=== PATIENT | male | born 1990 | race Caucasian/White ===

== ENCOUNTER 2019-04-02 16:36 | Emergency (ER) | payer MEDICAID, SELFPAY ==
[2019-04-02 17:02] VITALS: BP 121/56; PULSE 70; TEMP 36.9; O2SAT 98
[2019-04-02 17:38] LABS: Bilirubin Negative (Negative); Blood Negative (Negative); Clarity Clear (Clear); Glucose Negative (Negative); Ketones Negative (Negative); Leukocyte Esterase Negative (Negative); Nitrite Negative (Negative); Specific Gravity >= 1.030 (1.005-1.025); pH 5.5 (5-8)
[2019-04-02 17:56] LABS: *AMPHETAMINES SCREEN URINE POSITIVE (Negative); *BARBITURATES SCREEN URINE Negative (Negative); *BENZODIAZEPINES SCREEN URINE Negative (Negative); Cannabinoids THC POSITIVE (Negative); Cocaine Screen,Urine Negative (Negative); METHADONE URINE SCREEN Negative (Negative); OPIATES URINE SCREEN Negative (Negative)
[2019-04-02 17:58] LABS: Abs Immature Grans 0.02 k/cumm (0.0-0.09); Absolute Basophil Count 0.05 k/cumm (0.0-0.2); Absolute Eosinophil Count 0.23 k/cumm (0.0-0.7); Absolute Lymphocyte Count 1.65 k/cumm (1.2-3.4); Absolute Monocyte Count 0.63 k/cumm (0.11-0.7); Absolute Neutrophil Count 5.12 k/cumm (1.2-6.7); Basophils % 0.6; HCT 43.9 % (40.0-50.0); HGB 15.4 g/dL (13.5-17.5); Immature Grans % 0.3; Lymphocytes % 21.4; Mean Corp. HGB Concentration 35.1 g/dL (32.0-36.0); Mean Corpuscular Hemoglobin 32.7 pg (27.0-33.0); Mean Corpuscular Volume 93.2 fL (80-95); Mean Platelet Volume 10.3 fL (8.0-11.0); Monocytes % 8.2; Neutrophils % 66.5; Platelet Count 233 x1000/uL (130-400); RBC 4.71 m/cumm (4.50-6.00); RBC Distribution Width 12.3 % (11.8-14.1)
[2019-04-02 18:00] LABS: Tricyclic Antidepressants Negative (Negative)
[2019-04-02 18:24] LABS: ALT 92 U/L (16-63); AST 39 U/L (15-37); Albumin 3.7 g/dL (3.4-5.0); Alkaline Phosphatase 71 U/L (46-116); Anion Gap 7.6 mmol/L (3-11); BUN 12 mg/dL (7-18); Bilirubin, Total 0.7 mg/dL (0.2-1.0); CO2 28.4 mmol/L (21.0-32.0); CREATININE 0.99 mg/dL (0.70-1.30); Calcium 8.7 mg/dL (8.5-10.1); Chloride 106 mmol/L (98-107); Glucose 99 mg/dL (74-106); Potassium 4.3 mmol/L (3.5-5.1); Sodium 142 mmol/L (136-145); TSH (W/Ref FT4) 0.99 uIU/mL (0.36-3.74); Total Protein 7.2 g/dL (6.4-8.2)
[2019-04-02 18:36] LABS: Lithium 1.52 mmol/L (0.60-1.20)
--- NOTE | 2019-04-02 18:46 | W.ED.GENAD ---
Discharge Plan Disposition Patient Disposition: HOME Condition: Stable Discharge Details Chief Complaint: PsychEval Clinical Impression: Behavior disturbance, Noncompliance with medications Primary Care Provider: Krystal Rogel ED Provider: Caryn Mckinnon Home Meds and New Rx's Prescriptions: Continued buprenorphine-naloxone [Suboxone] 1 EACH film 1 film Sublingual DAILY RF: 0 ibuprofen 600 MG tablet 600 mg PO TID PRNQty: 15 RF: 0 quetiapine [Seroquel] 100 MG tablet 100 mg PO HS RF: 0 lithium carbonate 300 MG tablet 300 mg PO BID RF: 0 Discharge Instructions Instructions: Stress (ED), Anxiety (ED) Additional Instructions: Take your regular medications as directed. Follow-up with [facility] services as directed for medication management. Return to the emergency department if you develop any worsening or new concerning symptoms. Discharge Data Discharge Date/Time-TO BE ENTERED AT DEPARTURE: 04/02/19 19:55 Discharge Physician: Caryn Mckinnon Medical Decision Making <ROMÁN Loera - Last Filed: 04/03/19 14:59> Patient initially evaluated for complaints and concerns of mental health over the last week, noncompliance with his medications, question of drug use and retrograde amnesia this week. Patient has restarted his medications today. Patient denies suicidality or homicidality but feels he requires mental health evaluation. Specifically patient is reporting frustration with himself because reportedly his behavior in the last week was aggressive toward the mother of his child, she is currently at the bedside. For the last 3 months patient has been staying with his father in [place] which reportedly was a very stressful situation. Patient remains quite vague in his accounts of the last 3 months and specifically the last week. Labs obtained as well as urinalysis and drug screening. Mental health consult requested. Of note patient is positive for methamphetamine as well as THC. Labs are otherwise unremarkable with the exception of mild transaminase elevation. Patient meets that he has all of his daily psych medications however has been noncompliant. Patient specifically denies safety concerns. Signed out pending mental health evaluation <Caryn Mckinnon DO - Last Filed: 04/02/19 19:56> 1915 --please see Jelena Gibbons's note for initial presentation and plan. Discussed and examined patient at bedside. Patient is a 28-year-old male with a history of anxiety, PTSD, depression and ADHD presents for evaluation after a week of verbally aggressive behavior towards his significant other while off of his lithium and seroquel for the past week. Patient restarted his meds yesterday. Patient states that he was living in [place] for a few months and was kicked out of the house and his girlfriend and him subsequently took a bus back to [place] over period of 4 days. Patient states he does not remember these 4 days but girlfriend states he was verbally aggressive and belligerent. She states he is acting more close to his baseline since restarting his meds yesterday. Patient and significant other deny any current complaint of suicidal or homicidal ideation. Case endorsed to follow-up with mental health regarding plan. 1939 --labs reviewed. Minimal elevation in liver enzymes which appear improved compared to previous. UDS is positive for amphetamines and THC. Collyer level very minimally elevated above normal range. Patient appears somewhat drowsy but patient and family state that this is patient's usual presentation on Seroquel. No acute findings on exam. Case discussed with Isaías from mental health who states that patient is cleared for discharge to home. He was placed on medication referral with [facility] for medication management. Sister is present in room and states patient will be going back to his mother's house where she and his mother will be watching patient take his meds every day. Patient has plenty of meds for the next 10 days. Sister, girlfriend and patient feel good with plan for discharge to home. They are not concerned for his safety and will be watching him closely at home. They have [facility] human services contact number if needed over the weekend. [facility] services will follow up with him next week. Patient was advised to continue his medications as directed and to return here with any concerns. HPI <ROMÁN Loera - Last Filed: 04/03/19 14:59> General Date/Time Provider Initiated Documentation: 04/02/19 17:12. HPI Narrative: 28-year-old patient presents to the emergency room for complaints of mental health. Patient reports he recently returned from [place] where he had been residing for the last 3 months with his father. Patient was recently kicked out of his father's house and returned home to [place] with the mother of his child on a bus. She reports that the patient had significant psychologic breakdown with abnormal and aggressive behavior toward her during the 4-day bus ride from [place]. Police involved multiple times as well as security due to patient's behavior. Patient is very vague in his reports of the events from the days previous as he reports he has very limited recollection of the last week. Patient does report he has a history of drug-induced schizophrenia. Patient is unsure if he has taken any drugs recently he reports he typically would have used upper such as cocaine, meth or ecstasy. Patient and his friend reports that he has not been compliant with his psych medications, patient is primarily concerned with his and compliance with lithium. Patient denies suicidality or homicidality at this time. Patient reports he has had similar psychologic breaks in the past. When asked about visual or auditory hallucinations he reports that he has had none today however in answering the question indicates that he may have had some hallucinations recently. Patient denies any medical concerns or complaints at this time. Denies any focal headache, dizziness, nausea, vomiting, chest pain, abdominal pain. Reports moving bowels and urinating without difficulty. No associated fevers or chills recently. Related Data Home Medications Medication Instructions Recorded Confirmed buprenorphine-naloxone [Suboxone] 1 film SUBLINGUAL DAILY 02/09/17 04/02/19 ibuprofen 600 mg PO TID PRN #15 tab 04/10/17 04/02/19 lithium carbonate 300 mg PO BID 08/06/17 04/02/19 quetiapine [Seroquel] 100 mg PO HS 08/06/17 04/02/19 Previous Rx's Medication Instructions Recorded ibuprofen 600 mg PO TID PRN #15 tab 04/10/17 Allergies Allergy/AdvReac Type Severity Reaction Status Date / Time amoxicillin Allergy Unknown Oral Unverified 04/02/19 17:25 edema/bruising meloxicam [From Mobic] Allergy Unknown rash Unverified 04/02/19 17:25 Penicillins Allergy Unknown oral edema Unverified 04/02/19 17:25 bee venom protein (honey bee) Allergy Swelling/Ed Unverified 04/02/19 17:25 gorge fluoride Allergy Unknown Uncoded 04/02/19 17:25 seafood AdvReac Unknown unknown Uncoded 04/02/19 17:25 General Stated Complaint: PsychEval MICHELLE: 2 Review of Systems <ROMÁN Loera Last Filed: 04/03/19 14:59> All systems reviewed & are unremarkable except as noted in HPI and below Constitutional Constitutional: Denies chills, Denies fatigue, Denies fever(s), Denies headache(s) and Denies malaise ENT Ears, Nose, Mouth, and Throat: Denies headache(s) Cardiovascular Cardiovascular: Denies chest pain, Denies palpitations, Denies dyspnea and Denies dyspnea on exertion Respiratory Respiratory: Denies dyspnea and Denies dyspnea on exertion Gastrointestinal Gastrointestinal: Denies abdominal pain, Denies nausea and Denies vomiting Genitourinary Genitourinary: Denies hematuria, Denies dysuria and Denies urinary urgency Neurologic Neurologic: Denies headache(s) Endocrine Endocrine: Denies fatigue and Denies palpitations PFSH <ROMÁN Loera Last Filed: 04/03/19 14:59> Family History Mother Substance abuse Alcohol abuse Father Substance abuse Alcohol abuse Social History Smoking/Tobacco Use Status: Current every day Alcohol Intake: former Drug use: Daily Substance use type: marijuana Do you feel safe at home: Yes Do you feel safe in your relationship?: Yes Exam <ROMÁN Loera Last Filed: 04/03/19 14:59> Narrative Exam Narrative: CONST: Healthy appearing patient, in no acute distress. Well hydrated. Alert and alert. NECK: Normal visual inspection. FROM. No lymphadenopathy. Trachea midline. No Midline tenderness. CHEST: Normal insepection of the chest. RESP: Normal respiratory effort. Speaking full sentences. No cough. No wheezing. No retractions. Clear to auscaltation. Breath sound equal and present bilaterally. CARDIO: No JVD. Normal PMI. Regular Rate. Regular Rhythm. Normal peripheral pulses. GI: Normal inspection of abdomen. No distension. Soft. Nontender. Bowel sounds present in all 4 quadrants. No rebound. No gaurding. MUSCULOSKELETAL: Normal Gait. FROM of all extremities. Distal neurovascularly intact. Sensation intact distally. SKIN: Normal. Dry. No rashes. NEURO: Alert and awake. Speech clear. PSYCH: Normal affect. Cooperative. Course <ROMÁN Loera Last Filed: 04/03/19 14:59> Vital Signs Vital signs: Vital Signs Temperature 36.9 C 04/02/19 17:02 Pulse 70 04/02/19 17:02 Blood Pressure 121/56 L 04/02/19 17:02 Pulse Oximetry 98 04/02/19 17:02 Temperature 36.9 C 04/02/19 17:02 Temperature Source Temporal Artery Scan 04/02/19 17:02 Pulse 70 04/02/19 17:02 Respiratory Effort Non-Labored 04/02/19 16:54 Blood Pressure 121/56 L 04/02/19 17:02 Pulse Oximetry 98 04/02/19 17:02 Oxygen Delivery Method Room Air 04/02/19 17:02 Oxygen Flow Rate 0 04/02/19 17:02 Lab/Test Results Lab/Test Results: Laboratory Tests Range/Units 04/02/19 04/02/19 04/02/19 17:09 17:09 17:47 WBC (4.4-10.8) k/cumm RBC (4.50-6.00) m/cumm Hgb (13.5-17.5) g/dL Hct (40.0-50.0) % MCV (80-95) fL MCH (27.0-33.0) pg MCHC (32.0-36.0) g/dL RDW (11.8-14.1) % Plt Count (130-400) x1000/uL MPV (8.0-11.0) fL Immature Gran % Neutrophils % Lymphocytes % Monocytes % Eosinophils % Basophils % Absolute Neutrophils (1.2-6.7) k/cumm Absolute Lymphocytes (1.2-3.4) k/cumm Absolute Monocytes (0.11-0.7) k/cumm Absolute Eosinophils (0.0-0.7) k/cumm Absolute Basophils (0.0-0.2) k/cumm Sodium (136-145) mmol/L 142 Potassium (3.5-5.1) mmol/L 4.3 Chloride (98-107) mmol/L 106 Carbon Dioxide (21.0-32.0) mmol/L 28.4 Anion Gap (3-11) mmol/L 7.6 BUN (7-18) mg/dL 12 Creatinine (0.70-1.30) mg/dL 0.99 Estimated GFR/1.73 m2 (mL/min/1.73m2) >= 60.00 Glucose (74-106) mg/dL 99 Calcium (8.5-10.1) mg/dL 8.7 Total Bilirubin (0.2-1.0) mg/dL 0.7 AST (15-37) U/L 39 H ALT (16-63) U/L 92 H Alkaline Phosphatase (46-116) U/L 71 Total Protein (6.4-8.2) g/dL 7.2 Albumin (3.4-5.0) g/dL 3.7 TSH (0.36-3.74) uIU/mL 0.99 Urine Color (Yellow) Yellow Urine Clarity (Clear) Clear Urine pH (5-8) 5.5 Ur Specific [place] (1.005-1.025) >= 1.030 H Urine Protein (Negative) mg/dL Negative Urine Ketones (Negative) mg/dL Negative Urine Blood (Negative) Negative Urine Nitrite (Negative) Negative Urine Bilirubin (Negative) Negative Urine Urobilinogen (Up TO 0.2) EU/dL 1.0 H Ur Leukocyte Esterase (Negative) Negative Urine Glucose (Negative) mg/dL Negative Urine Opiates Screen (Negative) Negative Urine Methadone Screen (Negative) Negative Ur Barbiturates Screen (Negative) Negative Ur Tricyclics Screen (Negative) Negative Ur Amphetamines Screen (Negative) Positive A U Benzodiazepines Scrn (Negative) Negative Collyer (0.60-1.20) mmol/L Urine Cocaine Screen (Negative) Negative Ur THC Screen (Negative) Positive A Range/Units 04/02/19 04/02/19 17:47 17:47 WBC (4.4-10.8) k/cumm 7.70 RBC (4.50-6.00) m/cumm 4.71 Hgb (13.5-17.5) g/dL 15.4 Hct (40.0-50.0) % 43.9 MCV (80-95) fL 93.2 MCH (27.0-33.0) pg 32.7 MCHC (32.0-36.0) g/dL 35.1 RDW (11.8-14.1) % 12.3 Plt Count (130-400) x1000/uL 233 MPV (8.0-11.0) fL 10.3 Immature Gran % 0.3 Neutrophils % 66.5 Lymphocytes % 21.4 Monocytes % 8.2 Eosinophils % 3.0 Basophils % 0.6 Absolute Neutrophils (1.2-6.7) k/cumm 5.12 Absolute Lymphocytes (1.2-3.4) k/cumm 1.65 Absolute Monocytes (0.11-0.7) k/cumm 0.63 Absolute Eosinophils (0.0-0.7) k/cumm 0.23 Absolute Basophils (0.0-0.2) k/cumm 0.05 Sodium (136-145) mmol/L Potassium (3.5-5.1) mmol/L Chloride (98-107) mmol/L Carbon Dioxide (21.0-32.0) mmol/L Anion Gap (3-11) mmol/L BUN (7-18) mg/dL Creatinine (0.70-1.30) mg/dL Estimated GFR/1.73 m2 (mL/min/1.73m2) Glucose (74-106) mg/dL Calcium (8.5-10.1) mg/dL Total Bilirubin (0.2-1.0) mg/dL AST (15-37) U/L ALT (16-63) U/L Alkaline Phosphatase (46-116) U/L Total Protein (6.4-8.2) g/dL Albumin (3.4-5.0) g/dL TSH (0.36-3.74) uIU/mL Urine Color (Yellow) Urine Clarity (Clear) Urine pH (5-8) Ur Specific [place] (1.005-1.025) Urine Protein (Negative) mg/dL Urine Ketones (Negative) mg/dL Urine Blood (Negative) Urine Nitrite (Negative) Urine Bilirubin (Negative) Urine Urobilinogen (Up TO 0.2) EU/dL Ur Leukocyte Esterase (Negative) Urine Glucose (Negative) mg/dL Urine Opiates Screen (Negative) Urine Methadone Screen (Negative) Ur Barbiturates Screen (Negative) Ur Tricyclics Screen (Negative) Ur Amphetamines Screen (Negative) U Benzodiazepines Scrn (Negative) Collyer (0.60-1.20) mmol/L 1.52 H Urine Cocaine Screen (Negative) Ur THC Screen (Negative) Sign Out <ROMÁN Loera - Last Filed: 04/03/19 14:59> Sign Out Data: Sign Out Comment: Signed out pending mental health evaluation and ultimate disposition Last updated by Domenica Sams PA at 04/02/19 18:53
[2019-04-04 13:19] LABS: Hepatitis A Antibody IgM Negative (Negative); Hepatitis B Core Antibody Negative (Negative); Hepatitis B surface Ag Negative (Negative); Hepatitis C Ab w Rflx HCV PCR Reactive (Negative)
== END 2019-04-02 19:55 | disposition home or self-care (01) ==
PROVIDERS: Physician Assistant; Emergency Provider Physician Assistant; PCP Nurse Practitioner Family
DX: F91.9 Conduct disorder, unspecified (principal); Z91.14 Patient's other noncompliance with medication regimen; F15.10 Other stimulant abuse, uncomplicated; F12.10 Cannabis abuse, uncomplicated
CPT/HCPCS: 36415; 80053; 80307; 86704; 86709; 86803; 87340; 99283; 80178; 81003; 84443; 85025; 87522

== ENCOUNTER 2019-07-19 12:08 | Outpatient (CLI) | payer MEDICAID, SELFPAY ==
[2019-07-19 13:58] LABS: Abs Immature Grans 0.02 k/cumm (0.0-0.09); Absolute Basophil Count 0.02 k/cumm (0.0-0.2); Absolute Eosinophil Count 0.06 k/cumm (0.0-0.7); Absolute Lymphocyte Count 1.31 k/cumm (1.2-3.4); Absolute Monocyte Count 0.47 k/cumm (0.11-0.7); Absolute Neutrophil Count 4.74 k/cumm (1.2-6.7); Basophils % 0.3; Eosinophils % 0.9; HCT 44.9 % (40.0-50.0); HGB 15.8 g/dL (13.5-17.5); Immature Grans % 0.3 %; Lymphocytes % 19.8; Mean Corp. HGB Concentration 35.2 g/dL (32.0-36.0); Mean Corpuscular Hemoglobin 32.8 pg (27.0-33.0); Mean Corpuscular Volume 93.3 fL (80-95); Mean Platelet Volume 10.6 fL (8.0-11.0); Monocytes % 7.1; Neutrophils % 71.6; Platelet Count 207 x1000/uL (130-400); RBC 4.81 m/cumm (4.50-6.00); RBC Distribution Width 12.5 % (11.8-14.1); White Blood Cell Count 6.62 k/cumm (4.4-10.8)
[2019-07-19 14:02] LABS: ALT 148 U/L (16-63); AST 89 U/L (15-37); Albumin 4.7 g/dL (3.4-5.0); Alkaline Phosphatase 85 U/L (46-116); Anion Gap 7.9 mmol/L (3-11); BUN 13 mg/dL (7-18); Bilirubin, Total 0.6 mg/dL (0.2-1.0); CO2 29.1 mmol/L (21.0-32.0); CREATININE 1.06 mg/dL (0.70-1.30); Calcium 9.1 mg/dL (8.5-10.1); Chloride 101 mmol/L (98-107); Glucose 117 mg/dL (74-106); Potassium 4.2 mmol/L (3.5-5.1); Sodium 138 mmol/L (136-145); Total Protein 8.1 g/dL (6.4-8.2)
[2019-07-20 10:06] LABS: HIV-1/2 Ag & Ab Screen Negative (Negative); Hep A Total Ab w Rflx IgM Negative (Negative)
== END 2019-07-19 12:28 ==
PROVIDERS: PCP Nurse Practitioner Family; Visit Provider Preventive Medicine Public Health & General Preventive Medicine
DX: B18.2 Chronic viral hepatitis C (principal)
CPT/HCPCS: 36415; 80053; 86709; 87389; 85025

== ENCOUNTER 2019-10-21 05:30 | Emergency (ER) | payer MEDICAID, SELFPAY ==
[2019-10-21] VITALS (51 sets, daily range): BP systolic 94–149; BP diastolic 57–123; PULSE 0–163; RESP 6–39; TEMP 37.3–39.7; O2SAT 90–100
--- NOTE | 2019-10-21 05:49 | W.ED.GENAD ---
Discharge Plan Disposition Patient Disposition: [facility] Condition: Deteriorating Discharge Details Chief Complaint: Chest/Rib Clinical Impression: Bacteremia, Cavitary lesion of lung, Septic shock, Acute hypokalemia Primary Care Provider: Erika Espitia ED Provider: Ray Stuart Home Meds and New Rx's Prescriptions: No Action buprenorphine-naloxone [Suboxone] 1 EACH film 1 film Sublingual DAILY RF: 0 ibuprofen 600 MG tablet 600 mg PO TID PRNQty: 15 RF: 0 quetiapine [Seroquel] 100 MG tablet 100 mg PO HS RF: 0 lithium carbonate 300 MG tablet 300 mg PO BID RF: 0 dexmethylphenidate [Focalin XR] 15 mg capsule,ER biphasic 50-50 15 mg PO RF: 0 Medical Decision Making <Buzz Lancaster MD - Last Filed: 10/21/19 07:43> Medical Records Medical records narrative: Patient here with right-sided pleuritic chest pain which appears to be chest wall related. Saturations are normal. Lungs are clear. He has however quite tachycardic. Admits to drug use this week. Denies trauma. He has evidence of probable cellulitis on the right forearm. Multiple attempts at IV unsuccessful due to patient previous IVDA. Will send x-ray to at least get chest film. Will have morning nursing try to obtain access. Needs some fluid and Toradol. Will check labs but none not overly concerned for PE or cardiac disease. 7:45 -nurse on day shift able to get IV with ultrasound guidance. Labs sent. Chest x-ray read by radiology as possible right lower lobe infiltrate. Heart rate seems to be going up. Ordered for 2 L of saline. Blood cultures and lactic acid ordered. Will get CTA to further evaluate lungs. Ceftriaxone ordered. Case turned over to oncoming physician Dr. Stuart. ECG Data Attestation: I personally reviewed and interpreted this ECG (s) as follows: Prior ECG tracings: not available for review Interpretation: Sinus tachycardia at 130. Normal axis and intervals. No acute ST changes. <Rya Stuart DO - Last Filed: 10/21/19 12:56> Upon my evaluation, this patient had a high probability of imminent or life-threatening deterioration, which required my direct attention, intervention, and personal management. I have personally provided 45 minutes of critical care time exclusive of time spent on separately billable procedures. Time includes review of laboratory data, radiology results, discussion with consultants, and monitoring for potential decompensation. Interventions were performed as documented. 29-year-old male was signed out to me by my colleague Dr. Buzz Lancaster. Pending work-up and imaging at that time. On personal reassessment of the patient patient demonstrates worsening tachycardia now up to the 140s, EKG shows sinus tach no evidence of STEMI, no electrical alterations prominent ST elevation. Notable white count, patient is lymphopenic. D-dimer elevated, ESR elevated, hyponatremia of 126, lactate is only 1.3, troponin normal, pro calcitonin 1. Auscultation at bedside is concerning for mild murmur. I am concerned for bacteremia, endocarditis, doubt myocarditis with a normal troponin however with his elevated heart rate this may be the start of it. CT scan shows concerning cavitary lesions in the lungs, no evidence of PE. Concerning for septic emboli. Vancomycin and clindamycin 600 mg have been administered here, supplemental potassium 20 IV and 40 p.o. have been given. The patient blew multiple IVs, a right IJ was placed, notable scarring was noted, and the patient states that he uses his neck veins for IV drugs regularly. COVID testing still pending. Rapid HIV negative. Patient's blood pressure began to drop, systolic went below the 90s, and map is dropping towards 65. The patient's map continues to drop below 65 we will start Levophed drip. Did contact hospitalist Dr. Altamirano, discussed admission she requested transfer as we do not have echocardiogram availability over the weekend. Discussed the case with and Dr. Blanton, the patient will be admitted/transferred to [facility] ICU. The patient's family has been informed of his current scenario. I have extensively reviewed the treatment plan with the patient. I have addressed all patient concerns at this time. I have also discussed the plan with the admitting physician and they agree with the current assessment and plan and have agreed to assume responsibility for the patient. All parties demonstrate verbal understanding and agreement with our assessment and plan at this time. Currently the patient is maintaining his airway and does not require intubation. Procedure: Internal Jugular Central Venous Catheter Indication: Hemodynamic monitoring/Intravenous access PROCEDURE SUMMARY: A time-out was performed. The patient?s neck region was prepped and draped in sterile fashion using chlorhexidine scrub. Anesthesia was achieved with 1% lidocaine. The internal jugular vein was accessed under ultrasound guidance using a finder needle.notable resistance was noted secondary to significant scarring in the right IJ. Venous blood was withdrawn. A guidewire was advanced through the needle. And then confirmed on ultrasound for placement in the IJ. A small incision was made with a 10 blade scalpel and the dilator was advanced over the guidewire until appropriate dilation was obtained. The dilator was removed and a triple lumen catheter was advanced over the guidewire and secured into place with 2 simple interrupted sutures. At time of procedure completion, all ports aspirated and flushed properly. Post-procedure x-ray shows the tip of the catheter within the superior vena cava. ESTIMATED BLOOD LOSS: 5ml?s The patient tolerated the procedure well there were no complications. FINDINGS: Portable film at 1155 hours. Right suprahilar radiodensities noted consistent with right upper lobe pulmonary lesion identified on CT. Right internal jugular venous catheter is noted the tip of which overlies the superior vena cava. No other significant change. FINDINGS: CT angiography of the chest was performed with bolus infusion of 100 cc of Omnipaque 350. Images obtained through the upper abdomen show unremarkable appearance of visualized portions of the liver, spleen, pancreas, adrenals, and kidneys. There is no gross mediastinal or hilar adenopathy. Tracheobronchial tree appears intact. Thoracic aorta is of normal diameter and major branch vessels appear intact. No significant pulmonary arterial filling defects in the visualized circulation. There are poorly defined ground-glass and/or consolidated opacities in the lung bases posteriorly, right greater than left, question infectious process. There is an area of focal consolidation with spiculated borders in the right upper lobe posterolaterally adjacent to the minor fissure. There is a cavitating lesion of the right upper lobe anteriorly measuring up to about 4-5 cm in diameter, this lies medially adjacent to the mediastinum. Differential diagnosis of these focal consolidations would include necrotizing pneumonia, septic emboli, or neoplastic disease. Clinical correlation requested. No pleural effusion seen. IMPRESSION: Multiple areas of pulmonary consolidation including cavitating masslike lesions in the right upper lobe as described above, differential diagnosis includes septic pulmonary emboli, however no discrete pulmonary arterial filling defect is identified on this examination. Neoplastic disease not excluded although this would be unusual in this age group. HPI <Buzz Lancaster MD - Last Filed: 10/21/19 07:43> General Mode of arrival: EMS. Date/Time Provider Initiated Documentation: 10/21/19 05:35. Limitations to Documentation: no limitations. Information obtained by: patient and RN notes reviewed. HPI Narrative: Patient presents to ED with complaint of right side pleuritic pain. Reports that he had some yesterday but was severe after yawning and feeling something pop in his chest this morning. He denies fever or cough. Pain does not radiate. He had been recovered from drug use until this week when he has been dabbling in drugs once again. He does not have shortness of breath per se, chest hurts to take a breath. There is no GI symptoms/abdominal pain. There is no leg pain or leg swelling. Denies trauma or falls. Related Data Home Medications Medication Instructions Recorded Confirmed buprenorphine-naloxone [Suboxone] 1 film SUBLINGUAL DAILY 02/09/17 10/21/19 ibuprofen 600 mg PO TID PRN #15 tab 04/10/17 10/21/19 lithium carbonate 300 mg PO BID 08/06/17 10/21/19 quetiapine [Seroquel] 100 mg PO HS 08/06/17 10/21/19 dexmethylphenidate [Focalin XR] 15 mg PO 10/21/19 Previous Rx's Medication Instructions Recorded ibuprofen 600 mg PO TID PRN #15 tab 04/10/17 Allergies Allergy/AdvReac Type Severity Reaction Status Date / Time amoxicillin Allergy Unknown Oral Unverified 10/21/19 05:31 edema/bruising meloxicam [From Mobic] Allergy Unknown rash Unverified 10/21/19 05:31 Penicillins Allergy Unknown oral edema Unverified 10/21/19 05:31 bee venom protein (honey bee) Allergy Swelling/Ed Unverified 10/21/19 05:31 gorge fluoride Allergy Unknown Uncoded 10/21/19 05:31 seafood AdvReac Unknown unknown Uncoded 10/21/19 05:31 General Stated Complaint: Chest/Rib MICHELLE: 3 Review of Systems <Buzz Lancaster MD - Last Filed: 10/21/19 07:43> Narrative: As documented in HPI otherwise negative as below. Const: no fever, chills, weakness Resp: no cough, SOB. CV: no diaphoresis, edema, syncope GI: no abdominal pain, nausea, vomiting, diarrhea Neuro: no headache, numbness, focal weakness, confusion PFSH <Buzz Lancaster MD - Last Filed: 10/21/19 07:43> Medical History ADHD (attention deficit hyperactivity disorder) evaluation (Chronic 02/06/14) concentration and focus deficits Hepatitis C virus (Chronic 05/16/14) referred to Infectious Disease, [place] by [facility] History of opioid abuse (Chronic 08/14/14) Schizophrenia (Chronic) Family History Mother Substance abuse Alcohol abuse Father Substance abuse Alcohol abuse Social History Smoking/Tobacco Use Status: Current every day Alcohol Intake: former Drug use: Daily Substance use type: marijuana Do you feel safe at home: Yes Do you feel safe in your relationship?: Yes Exam <Buzz Lancaster MD - Last Filed: 10/21/19 07:43> Narrative Exam Narrative: Vitals: Afebrile. Tachycardic. Normal room air pulse ox. Const: WDWN male in NAD. HEENT: NC/AT. Normal facial exam. Eyes: Normal conjunctiva and sclera. Neck: Supple. Trachea midline. Lungs: Normal respiratory effort. Lungs are clear. Chest wall point tender right lower anterior chest below breast. Cor: RRR without murmur/gallop. Good radial pulses. GI: Soft. NT/ND. No guarding or rebound. Neuro: A+O x 3. Normal speech, mentation, gait. Cranial nerves II - XII grossly intact. No gross motor or sensory deficit. Ext: No C/C/E. No calf tenderness. Skin: Warm and dry without rash. Multiple track avila present. Some erythema to the right forearm. No fluctuance or tenderness. Course <Buzz Lancaster MD - Last Filed: 10/21/19 07:43> Vital Signs Vital signs: Vital Signs Temperature 99.1 F 10/21/19 05:27 Pulse 135 H 10/21/19 05:27 Respiratory Rate 20 10/21/19 05:27 Pulse Oximetry 96 10/21/19 05:27 Temperature 99.1 F 10/21/19 05:27 Temperature Source Temporal Artery Scan 10/21/19 05:27 Pulse 135 H 10/21/19 05:27 Respiratory Rate 20 10/21/19 05:27 Respiratory Effort 10/21/19 05:33 Respiratory Depth Normal 10/21/19 05:33 Blood Pressure Position Sitting 10/21/19 05:27 Pulse Oximetry 96 10/21/19 05:27 Oxygen Delivery Method Room Air 10/21/19 05:27 Oxygen Flow Rate 0 10/21/19 05:27 <Ray Stuart DO - Last Filed: 10/21/19 12:56> Central Line Placement Right IJ: Time Out Performed: Yes Patient Placed on Monitor/Pulse Ox: Yes MD Prep: mask, gown and gloves Central Line Prep: Chlorhexidine scrub Local Anesthetic: Lidocaine 1% Amount of anesthesia used (mL): 5 Ultrasound Used for Placement: Yes Central Line Lumen Inserted: triple Post Procedure: good blood return, all ports aspirated, flushed, capped and sutured in place with nylon Post Procedure X-Ray: tip of catheter in good position Patient Tolerated Procedure: well and no complications Complications: none Sign Out <Buzz Lancaster MD - Last Filed: 10/21/19 07:43> Sign Out Data: Sign Out Comment: Pending labs and CTA. Last updated by Buzz Lancaster MD at 10/21/19 07:48
--- NOTE | 2019-10-21 06:38 | NUR.NOTE ---
Nursing Note:pt reports relapsing and using IV drugs Thursday and Thursday. Multiple failed attempts at placing IV access includeing ultrasound by .
--- NOTE | 2019-10-21 07:05 | DI.RAD_ITS ---
EXAM: XR CHEST 2V PA LATERAL CLINICAL HISTORY: right sided chest pain TECHNIQUE: COMPARISON: CR CHEST 2 VIEWS PA,LAT from 11/24/2009 FINDINGS: The heart is not enlarged. Left lung appears clear. There are increased radiodensities at the right lung base with some mild obscuration of the diaphragmatic contour. Findings are suggestive of right basilar consolidation. No pleural effusion seen. IMPRESSION: Findings suggesting right basilar pneumonia. Appropriate follow-up studies requested.
--- NOTE | 2019-10-21 07:30 | DI.CT_ITS ---
EXAM: CT CHEST PE CTA CLINICAL HISTORY: tachy, r pleuritic pain TECHNIQUE: COMPARISON: No exams were available for comparison FINDINGS: CT angiography of the chest was performed with bolus infusion of 100 cc of Omnipaque 350. Images obt ained through the upper abdomen show unremarkable appearance of visualized portions of the liver, spl een, pancreas, adrenals, and kidneys. There is no gross mediastinal or hilar adenopathy. Tracheobronchial tree appears intact. Thoracic a barber is of normal diameter and major branch vessels appear intact. No significant pulmonary arterial filling defects in the visualized circulation. There are poorly defined ground-glass and/or consolidated opacities in the lung bases posteriorly, ri ght greater than left, question infectious process. There is an area of focal consolidation with spi culated borders in the right upper lobe posterolaterally adjacent to the minor fissure. There is a c avitating lesion of the right upper lobe anteriorly measuring up to about 4-5 cm in diameter, this li es medially adjacent to the mediastinum. Differential diagnosis of these focal consolidations would include necrotizing pneumonia, septic emboli, or neoplastic disease. Clinical correlation requested. No pleural effusion seen. IMPRESSION: Multiple areas of pulmonary consolidation including cavitating masslike lesions in the right upper lo be as described above, differential diagnosis includes septic pulmonary emboli, however no discrete p ulmonary arterial filling defect is identified on this examination. Neoplastic disease not excluded although this would be unusual in this age group.
--- NOTE | 2019-10-21 07:42 | DI.VRAD_ITS ---
PROCEDURE INFORMATION: Exam: XR Chest, 2 Views Exam date and time: 10/21/2019 7:01 AM Age: 29 years old Clinical indication: Right-sided chest pain TECHNIQUE: Imaging protocol: XR of the chest Views: 2 views. COMPARISON: No relevant prior studies available. FINDINGS: Lungs: Subtle airspace disease suggested within the right lung base. Lungs are otherwise well aerated. Pleural space: Unremarkable. No pleural effusion. No pneumothorax. Heart/Mediastinum: Unremarkable. No cardiomegaly. Bones/joints: Unremarkable. IMPRESSION: Subtle airspace disease suggested within the right lung base. Lungs are otherwise well aerated. Follow-up suggested. Dictated and Authenticated by: Fantasma Santiago MD. Ordering:RHETT Gerber MD
[2019-10-21] MEDS: Normal Saline 1,000 ML 1000 ML IV ×2 (07:45→07:49)
[2019-10-21] MEDS: Ketorolac 30 MG/ML VIAL IVP (07:49)
[2019-10-21] MEDS: cefTRIAXone 1 GM/50 ML BAG IVPB (07:50)
[2019-10-21 07:53] LABS: Abs Immature Grans 0.59 k/cumm (0.0-0.09); HCT 43.1 % (40.0-50.0); HGB 15.8 g/dL (13.5-17.5); Mean Corp. HGB Concentration 36.7 g/dL (32.0-36.0); Mean Corpuscular Volume 87.2 fL (80-95); Mean Platelet Volume 10.5 fL (8.0-11.0); Platelet Count 185 x1000/uL (130-400); RBC 4.94 m/cumm (4.50-6.00)
[2019-10-21 07:55] LABS: ALT 50 U/L (16-63); AST 33 U/L (15-37); Albumin 3.5 g/dL (3.4-5.0); Alkaline Phosphatase 73 U/L (46-116); Anion Gap 8.5 mmol/L (3-11); BUN 10 mg/dL (7-18); Bilirubin, Total 1.5 mg/dL (0.2-1.0); CO2 25.5 mmol/L (21.0-32.0); CREATININE 1.25 mg/dL (0.70-1.30); Calcium 8.8 mg/dL (8.5-10.1); Chloride 92 mmol/L (98-107); Glucose 144 mg/dL (74-106); Potassium 3.1 mmol/L (3.5-5.1); Sodium 126 mmol/L (136-145); Total Protein 7.6 g/dL (6.4-8.2)
[2019-10-21 07:56] LABS: Troponin I < 0.05 ng/mL (<0.06)
[2019-10-21 08:07] LABS: Absolute Lymphocyte Count 0.35 k/cumm (1.2-3.4); Absolute Monocyte Count 0.52 k/cumm (0.11-0.7); Absolute Neutrophil Count 15.92 k/cumm (1.2-6.7)
[2019-10-21 08:08] LABS: Diff Comment Manual Differential
[2019-10-21 08:13] LABS: C-Reactive Protein 14.67 mg/dL (0.0-0.3)
[2019-10-21 08:15] LABS: Magnesium 1.6 mg/dL (1.8-2.4)
[2019-10-21 08:19] LABS: D-Dimer 3205 ng/mlFEU (<500)
[2019-10-21 08:46] LABS: ESR 33 mm/hr (0-15)
[2019-10-21 09:36] LABS: Ferritin 617 ng/mL (26-388); LDH 236 U/L (85-227)
[2019-10-21] MEDS: POTASSIUM CHLORIDE 20 MEQ/100 ML BAG 50 MEQ IVPB (09:45)
[2019-10-21 09:48] LABS: Lactate 1.3 mmol/L (0.6-1.4)
[2019-10-21 10:06] LABS: Troponin I < 0.05 ng/mL (<0.06)
[2019-10-21] MEDS: Normal Saline - Diluent 50 ML VIAL IV (10:22)
[2019-10-21] MEDS: Omnipaque 350 MG/ML 100 ML BTL IJ (10:23)
[2019-10-21 11:16] LABS: HIV 1/2 Ab Rapid Negative (Negative)
--- NOTE | 2019-10-21 11:30 | DI.RAD_ITS ---
EXAM: XR PORTABLE CHEST AP POST LINE CLINICAL HISTORY: post IJ TECHNIQUE: COMPARISON: CR,XR XR CHEST 2V PA LATERAL from 10/21/2019 FINDINGS: Portable film at 1155 hours. Right suprahilar radiodensities noted consistent with right upper lobe pulmonary lesion identified on CT. Right internal jugular venous catheter is noted the tip of which overlies the superior vena cava. No other significant change. IMPRESSION:
[2019-10-21] MEDS: CLINDAMYCIN 600 MG/50 ML BAG 100 MG IVPB (11:45)
[2019-10-21] MEDS: Potassium Chloride 20 MEQ TABCR 40 MEQ PO (11:47)
[2019-10-21] MEDS: VANCOMYCIN 2,000 MG in Normal Saline 500 ML 250 MG IVPB (11:47)
--- NOTE | 2019-10-21 11:56 | PGE_ITS ---
Date of Service Date of service: 10/21/19 Time of Service: 11:56 Subjective Subjective Interval history since last seen: The hospitalist service was asked to admit Mr Josiah Gastelum for sepsis due to likely endocarditis with cavitary pneumonia due to septic emboli. Since his original presentation, the patient has now become hypotensive and is requiring vasopressor support. Given the high clinical suspicion of endocarditis in this patient, it is not evident that the source of shock is solely septic. There could very well be cardiogenic component due to a diseased valve. There is no capability of echocardiogram at [facility] until 10/24/2019. The patient should be transferred to a facility with echo available on STAT basis. The patient could also benefit from ID and in-person pulmonology evaluations, which [facility] does not have available. The hospitalists are no longer in agreement to accept this patient at our facility. The admission order has been retracted. Objective Objective Clinical Data: Abnormal lab results 10/21/19 10/21/19 10/21/19 Range/Units 07:30 07:30 07:30 WBC 17.30 H (4.4-10.8) k/cumm MCHC 36.7 H (32.0-36.0) g/dL Absolute Neutrophils 15.92 H (1.2-6.7) k/cumm Absolute Lymphocytes 0.35 L (1.2-3.4) k/cumm ESR (0-15) mm/hr D-Dimer 3205 H (<500) ng/mlFEU Sodium 126 L (136-145) mmol/L Potassium 3.1 L (3.5-5.1) mmol/L Chloride 92 L (98-107) mmol/L Glucose 144 H (74-106) mg/dL Magnesium (1.8-2.4) mg/dL Ferritin (26-388) ng/mL Total Bilirubin 1.5 H (0.2-1.0) mg/dL Lactate Dehydrogenase (85-227) U/L C-Reactive Protein (0.0-0.3) mg/dL 10/21/19 10/21/19 10/21/19 Range/Units 07:30 07:30 07:30 WBC (4.4-10.8) k/cumm MCHC (32.0-36.0) g/dL Absolute Neutrophils (1.2-6.7) k/cumm Absolute Lymphocytes (1.2-3.4) k/cumm ESR 33 H (0-15) mm/hr D-Dimer (<500) ng/mlFEU Sodium (136-145) mmol/L Potassium (3.5-5.1) mmol/L Chloride (98-107) mmol/L Glucose (74-106) mg/dL Magnesium 1.6 L (1.8-2.4) mg/dL Ferritin (26-388) ng/mL Total Bilirubin (0.2-1.0) mg/dL Lactate Dehydrogenase (85-227) U/L C-Reactive Protein 14.67 H (0.0-0.3) mg/dL 10/21/19 Range/Units 07:38 WBC (4.4-10.8) k/cumm MCHC (32.0-36.0) g/dL Absolute Neutrophils (1.2-6.7) k/cumm Absolute Lymphocytes (1.2-3.4) k/cumm ESR (0-15) mm/hr D-Dimer (<500) ng/mlFEU Sodium (136-145) mmol/L Potassium (3.5-5.1) mmol/L Chloride (98-107) mmol/L Glucose (74-106) mg/dL Magnesium (1.8-2.4) mg/dL Ferritin 617 H (26-388) ng/mL Total Bilirubin (0.2-1.0) mg/dL Lactate Dehydrogenase 236 H (85-227) U/L C-Reactive Protein (0.0-0.3) mg/dL Vital Signs Temperature 37.3 C 10/21/19 05:27 Temperature Source Temporal Artery Scan 10/21/19 05:27 Pulse 140 H 10/21/19 06:47 Pulse 163 H 10/21/19 09:50 Respiratory Rate 26 H 10/21/19 09:50 Respiratory Effort 10/21/19 05:33 Respiratory Depth Normal 10/21/19 05:33 Blood Pressure 127/98 H 10/21/19 06:47 Blood Pressure Mean 105 10/21/19 06:47 Blood Pressure Position Sitting 10/21/19 05:27 Pulse Oximetry 93 L 10/21/19 08:30 Oxygen Delivery Method Room Air 10/21/19 05:27 Oxygen Flow Rate 0 06/26/20 05:27 Intake & Output 10/20/19 10/20/19 10/21/19 11:59 23:59 11:59 Intake Total Balance Weight 104.326 kg Intake: IV Laboratory Results WBC 17.30 k/cumm (4.4-10.8) H 10/21/19 07:30 RBC 4.94 m/cumm (4.50-6.00) 10/21/19 07:30 Hgb 15.8 g/dL (13.5-17.5) 10/21/19 07:30 Hct 43.1 % (40.0-50.0) 10/21/19 07:30 MCV 87.2 fL (80-95) 10/21/19 07:30 MCH 32.0 pg (27.0-33.0) 10/21/19 07:30 MCHC 36.7 g/dL (32.0-36.0) H 10/21/19 07:30 RDW 12.0 % (11.8-14.1) 10/21/19 07:30 Plt Count 185 x1000/uL (130-400) 10/21/19 07:30 MPV 10.5 fL (8.0-11.0) 10/21/19 07:30 Immature Gran % See Differential 10/21/19 07:30 Neutrophils % 85.0 10/21/19 07:30 Band Neutrophils % 7.0 % 10/21/19 07:30 Lymphocytes % 2.0 10/21/19 07:30 Monocytes % 3.0 10/21/19 07:30 Eosinophils % 0.0 10/21/19 07:30 Basophils % 0.0 10/21/19 07:30 Metamyelocytes % 3.0 % 10/21/19 07:30 Absolute Neutrophils 15.92 k/cumm (1.2-6.7) H 10/21/19 07:30 Absolute Lymphocytes 0.35 k/cumm (1.2-3.4) L 10/21/19 07:30 Absolute Monocytes 0.52 k/cumm (0.11-0.7) 10/21/19 07:30 Absolute Eosinophils 0.00 k/cumm (0.0-0.7) 10/21/19 07:30 Absolute Basophils 0.00 k/cumm (0.0-0.2) 10/21/19 07:30 Differential Comment Manual differential 10/21/19 07:30 RBC Morphology See below 10/21/19 07:30 ESR 33 mm/hr (0-15) H 10/21/19 07:30 D-Dimer 3205 ng/mlFEU (<500) H 10/21/19 07:30 Sodium 126 mmol/L (136-145) L 10/21/19 07:30 Potassium 3.1 mmol/L (3.5-5.1) L 10/21/19 07:30 Chloride 92 mmol/L (98-107) L 10/21/19 07:30 Carbon Dioxide 25.5 mmol/L (21.0-32.0) 10/21/19 07:30 Anion Gap 8.5 mmol/L (3-11) 10/21/19 07:30 BUN 10 mg/dL (7-18) 10/21/19 07:30 Creatinine 1.25 mg/dL (0.70-1.30) 10/21/19 07:30 Estimated GFR/1.73 m2 >= 60.00 (mL/min/1.73m2) 10/21/19 07:30 Glucose 144 mg/dL (74-106) H 10/21/19 07:30 Lactate 1.3 mmol/L (0.6-1.4) 10/21/19 09:30 Calcium 8.8 mg/dL (8.5-10.1) 10/21/19 07:30 Magnesium 1.6 mg/dL (1.8-2.4) L 10/21/19 07:30 Ferritin 617 ng/mL (26-388) H 10/21/19 07:38 Total Bilirubin 1.5 mg/dL (0.2-1.0) H 10/21/19 07:30 AST 33 U/L (15-37) 10/21/19 07:30 ALT 50 U/L (16-63) 10/21/19 07:30 Alkaline Phosphatase 73 U/L (46-116) 10/21/19 07:30 Lactate Dehydrogenase 236 U/L (85-227) H 10/21/19 07:38 Troponin I < 0.05 ng/mL (<0.06) 10/21/19 09:30 C-Reactive Protein 14.67 mg/dL (0.0-0.3) H 10/21/19 07:30 Total Protein 7.6 g/dL (6.4-8.2) 10/21/19 07:30 Albumin 3.5 g/dL (3.4-5.0) 10/21/19 07:30 Procalcitonin 1.0 ng/mL 10/21/19 09:30 HIV 1&2 Antibody Rapid Negative (Negative) 10/21/19 07:30
[2019-10-21 12:53] LABS: NT-proBNP 1755 pg/mL (<300)
--- NOTE | 2019-10-21 12:56 | NUR.NOTE ---
Nursing Note: RN called ncc at [facility] was told by ANATOLY that nurse was not available to take report and that they would call us when they wanted report in aproximatly 30 min. RN asked to speak with charge anatoly chris that she would talk to the charge and there was nothing else she could do and to wait to give report when RN taking patient called JEFFRY
[2019-10-21 12:57] LABS: Lithium < 0.20 mmol/L (0.60-1.20)
--- NOTE | 2019-10-21 22:58 | NUR.NOTE ---
Nursing Note: Blood culture results given via phone to Lavinia @ [facility] 3 N- pt transferred this afternoon. Will fax results to [phone].
[2019-10-21 23:22] LABS: COVID-19 RT-PCR UVMMC Result Negative (Negative)
--- NOTE | 2019-10-22 00:14 | NUR.NOTE ---
Nursing Note: Results of negative COVID faxed to [facility] N.
--- NOTE | 2019-10-24 13:29 | NUR.NOTE ---
Patient transferred to [facility], discharged at time blood culture reported. Faxed to patient's PCP Erika Espitia .Nursing Note:
== END 2019-10-21 13:23 | disposition short-term general hospital (02) ==
PROVIDERS: Emergency Medicine; Internal Medicine; Emergency Provider Student in an Organized Health Care Education/Training Program; PCP Nurse Practitioner Family
DX: A41.02 Sepsis due to Methicillin resistant Staphylococcus aureus (principal); R65.21 Severe sepsis with septic shock; E87.6 Hypokalemia; R91.8 Other nonspecific abnormal finding of lung field; R79.1 Abnormal coagulation profile; F11.10 Opioid abuse, uncomplicated; Z03.818 Encounter for observation for suspected exposure to other biological agents ruled out; L08.9 Local infection of the skin and subcutaneous tissue, unspecified
CPT/HCPCS: 36415; 36556; 71045; 71275; 80053; 84145; 85652; 87040; 87077; 93005; 96361; 96365; 96366; 96367; 96368; 96375; 99291; NC; U0003; 71046; 80178; 82728; 83605; 83615; 83735; 83880; 84484; 85025; 85379; 86140; 87186; 93010; J0696; J1885; J3480; J3490

== ENCOUNTER 2020-01-22 20:16 | Observation (INO) | payer MEDICAID, SELFPAY ==
[2020-01-22 20:38] VITALS: BP 149/99; PULSE 73; RESP 18; TEMP 36.7; O2SAT 99
--- NOTE | 2020-01-22 20:41 | W.ED.GENAD ---
Discharge Plan Disposition Patient Disposition: [facility] INPATIENT Condition: Stable Discharge Details Chief Complaint: PsychEval Clinical Impression: Schizophrenia Primary Care Provider: Erika Espitia ED Provider: Todd Sanchez Home Meds and New Rx's Prescriptions: No Action lithium carbonate 300 MG tablet 300 mg PO HS RF: 0 buprenorphine-naloxone 8-2 mg Tablet, Sublingual 2 tab SUBLINGUAL DAILY RF: 0 dexmethylphenidate [Focalin XR] 20 mg Capsule,Er Biphasic 50-50 20 mg PO DAILY RF: 0 Eliquis 5 mg Tablet 5 mg PO BID RF: 0 famotidine 40 mg Tablet 40 mg PO DAILY RF: 0 Medical Decision Making <Ray Stuart DO - Last Filed: 01/23/20 05:43> 49-year-old male with a past medical history of depression, schizophrenia, illicit drug use, presents today for evaluation of voices, visual hallucinations, suicidal ideations. Patient states that he overdosed on heroin 3 days ago, he has not taken his lithium or other depression medicines for the last week and a half citing multiple reasons. He is seeing shadows on the carrera, hearing voices that are telling him various notably negative things. He states that he would kill himself by overdosing again. He denies any chest pain shortness of breath nausea vomiting or diarrhea. He denies any alcohol use. He is seeking admission to a mental health facility. No other complaints at this time. No homicidal ideations. He admits to a history of the symptoms before in the past. We will perform medical screening, although I suspect this to be notably benign. We will contact mental health, get a one-to-one observer, monitor closely and reassess. 11 PM Patient has been seen and assessed by mental health. They agree with need for admission. Unfortunately no beds are currently available at our hospital, and we are pending the coronavirus test for the patient. We will keep the patient in the emergency department until an admission bed opens here. We will continue to monitor closely. Patient's work-up is unremarkable otherwise. He is medically cleared. Patient will be signed out to my colleague pending admission of bed availability here in the hospital or call for test results and then transfer to [facility]. <Todd Sanchez MD - Last Filed: 01/23/20 18:02> pt remains stable, is restless which could be from mild opiate withdrawal, has had success per pt with clonidine and also ativan, will tx with this. We do have beds available here until voluntary psych bed placement made, spoke with Dr. Álvarez who accepts for admission HPI <Ray Stuart DO - Last Filed: 01/23/20 05:43> General Date/Time Provider Initiated Documentation: 01/22/20 20:18. HPI Narrative: 49-year-old male with a past medical history of depression, schizophrenia, illicit drug use, presents today for evaluation of voices, visual hallucinations, suicidal ideations. Patient states that he overdosed on heroin 3 days ago, he has not taken his lithium or other depression medicines for the last week and a half citing multiple reasons. He is seeing shadows on the carrera, hearing voices that are telling him various notably negative things. He states that he would kill himself by overdosing again. He denies any chest pain shortness of breath nausea vomiting or diarrhea. He denies any alcohol use. He is seeking admission to a mental health facility. No other complaints at this time. No homicidal ideations. He admits to a history of the symptoms before in the past. Related Data Home Medications Medication Instructions Recorded Confirmed lithium carbonate 300 mg PO HS 08/06/17 01/23/20 apixaban [Eliquis] 5 mg PO BID 01/23/20 01/23/20 buprenorphine-naloxone 2 tab SUBLINGUAL DAILY 01/23/20 01/23/20 dexmethylphenidate [Focalin XR] 20 mg PO DAILY 01/23/20 01/23/20 famotidine 40 mg PO DAILY 01/23/20 01/23/20 Allergies Allergy/AdvReac Type Severity Reaction Status Date / Time amoxicillin Allergy Unknown Oral Unverified 10/21/19 05:31 edema/bruising meloxicam [From Mobic] Allergy Unknown rash Unverified 10/21/19 05:31 Penicillins Allergy Unknown oral edema Unverified 10/21/19 05:31 bee venom protein (honey bee) Allergy Swelling/Ed Unverified 10/21/19 05:31 gorge fluoride Allergy Unknown Uncoded 10/21/19 05:31 seafood AdvReac Unknown unknown Uncoded 10/21/19 05:31 General MICHELLE: 3 Review of Systems <Ray Stuart - Last Filed: 01/23/20 05:43> All systems reviewed & are unremarkable except as noted in HPI and below PFSH <Ray Stuart - Last Filed: 01/23/20 05:43> Medical History (Updated 01/23/20 @ 18:02 by Todd Sanchez MD) ADHD (attention deficit hyperactivity disorder) evaluation (02/06/14) concentration and focus deficits Hepatitis C virus (05/16/14) referred to Infectious Disease, [place] by [facility] History of opioid abuse (08/14/14) Schizophrenia Family History Mother Substance abuse Alcohol abuse Father Substance abuse Alcohol abuse Social History Smoking/Tobacco Use Status: Current every day Tobacco Type: cigarettes Alcohol Intake: former Drug use: Daily Substance use type: marijuana Do you feel safe at home: Yes Do you feel safe in your relationship?: Yes Exam <Ray Cordobabrian - Last Filed: 01/23/20 05:43> Narrative Exam Narrative: 1.Const: Well-nourished, Well-developed, appearing stated age 2.Eyes: PERRL, no conjunctival injection, and symmetrical lids. 3.ENT: Atraumatic external nose and ears. Moist MM. Neck: Symmetric, trachea midline, No thyromegaly. 4.CVS: +S1/S2, No murmurs or gallops. Peripheral pulses 2+ and equal in all extremities. Brisk capillary refill in all extremities. 5.RESP: Unlabored respiratory effort. Clear to auscultation bilaterally. No wheezes rales or rhonchi 6.GI: Soft, Nontender/Nondistended, No hepatosplenomegaly. No guarding or rebound. 7.MSK: Normocephalic/Atraumatic, Extremities w/o deformity or ttp No cyanosis or clubbing, Normal movement of all extremities 8.Skin: Warm, Dry. No rashes or lesions. 9.Neuro: credit administration officer II-XII grossly intact. Sensation grossly intact, no focal neurologic deficits. 10.Psych: (AAO) x3. Appropriate mood and affect Sign Out <Ray Megan Stuart DO - Last Filed: 01/23/20 05:43> Sign Out Data: Sign Out Comment: Pending transfer to mental health facility admission to [facility] pending COVID. Patient medically cleared Last updated by Ray Stuart DO at 01/23/20 08:06 Sign Out Comment: Pending covid test/disposition Last updated by Dereck Figueredo MD at 01/23/20 14:52
--- NOTE | 2020-01-22 20:58 | NUR.NOTE ---
Nursing Note:Patient attempting to talk to Mental Health. Falling asleep in mid sentence, unable to hold IPad up.
--- NOTE | 2020-01-22 21:13 | CMSP_ITS ---
- If Service Date Differs Date of service: 01/22/20 Time of Service: 21:14 Care Management Safety Plan Josiah is a 29 year old man with a history of depression, schizophrenia and illicit drug use who presented to the ED with auditory and visual hallucinations and suicidal thoughts. He reported overdosing on heroin 3 days ago and admits he hasn't taken his psychiatric medications in the past week and a half. The voices are telling him negative things and he states he would kill himself by overdosing again. He is requesting inpatient psychiatric treatment at [facility]. Apparently he had called them and was directed to come to the ED for medical clearance. CM will respond to ED to assess patient after patient has been medically cleared and assessed by screener. If screener deems patient meets criteria for psychiatric stabilization CM will facilitate interdepartmental huddle with [facility] screener for safety planning considerations and meet with patient to review [facility] policy and safety plan, establish individual wishes for treatment and maintain patient rights. In the interim; please note safety plan below to guide patient care while awaiting further assessment in the ED. SAFETY PLAN: 1. Will remain on suicide precautions and in paper clothes. 2. Will remain in room under direct supervision of one-on-one staff at all times provided by KRISHNA, SECONDARY SPECIAL EDUCATION TEACHER ore smelter. 3. May have paper cups, plates, finger foods as well as a cardboard spoon with which to eat meals. 4. Follow [facility] Management of the Admitted Behavioral Health Patient policy. 5. Comfort bath system only. 6. No personal belongings 7. No visitors. 8. Phone contact limited to legal enrollment representative. 9. Due to VOLUNTARY status, if patient wishes to leave [facility], the [facility] wash house worker must be contacted to re-evaluate patient prior to patient exiting the building. If deemed appropriate for inpatient psychiatric care, safety plan will be established with patient, and care team, to adhere to patient goals, identify restrictions based on behavioral status, address nutrition, and determine allowed personal belongings, tools for hygiene and personal care. As well plan will determine level of activity including ambulation, level of supervision, visitors, and determine privileges based on level of acuity, behaviors and level of engagement by patient.
--- NOTE | 2020-01-22 21:20 | PDOC.MHCN_ITS ---
Date of service: 01/22/20 Time of Service: 21:21 Mental Health Crisis Note Presenting Issue How did you arrive at the ED and why did you come: Client brought himself to the ED. Client called to check himself into [facility] and they told him to be medically cleared at the ED first and then they could place him. Precipitating Factors Client reports no SI or HI. Client reports a history of schizophrenia. Client reports that he has not been taking meds and has been seeing shadows and hearing voices. Disposition BEHAVIOR: Client has a difficult time staying awake during the assessment and has to been woken up numerous times. EYE CONTACT: Client does not make eye contact with this investment underwriter, his eyes are closed throughout the assessment. MOOD: Clients mood is depressed. AFFECT: Clients affect is flat. APPETITE: Client reports that he has not been eating very much. SLEEP(trouble falling/staying asleep: Client reports that he barely sleeps. Plan Client would like to go voluntarily to [facility]. When this investment underwriter contacted [facility], they reported that they had already spoken to him and were aware of him going to the ED to be medically cleared. Client will remain at [facility] to await COVID test results. [facility] will fax all paperwork to [facility]. This investment underwriter has left a message with Care Management to call to discuss the plan.
[2020-01-22 21:46] LABS: Abs Immature Grans 0.03 10^3/uL (0.0-0.06); Absolute Basophil Count 0.04 10^3/uL (0.0-0.2); Absolute Eosinophil Count 0.12 10^3/uL (0.0-0.7); Absolute Neutrophil Count 6.03 10^3/uL (1.2-6.7); Basophils % 0.5; Eosinophils % 1.5; HCT 38.4 % (40.0-50.0); HGB 13.1 g/dL (13.5-17.5); Immature Grans % 0.4; MCH 31.1 pg (27.0-33.0); MCHC 34.1 % (32.0-36.0); MCV 91.2 fL (80-95); MPV 10.3 fL (8.0-11.0); Monocytes % 7.3; Neutrophils % 73.3; Nucleated RBC 0 %; Platelet Count 274 10^3/uL (130-400); RBC 4.21 10^6/uL (4.36-5.78); RDW 12.3 % (11.8-14.1); WBC 8.22 10^3/uL (4.4-10.8)
[2020-01-22 21:54] LABS: *AMPHETAMINES SCREEN URINE Negative (Negative); *BARBITURATES SCREEN URINE Negative (Negative); *BENZODIAZEPINES SCREEN URINE Negative (Negative); Cannabinoids THC Negative (Negative); Cocaine Screen,Urine POSITIVE (Negative); METHADONE URINE SCREEN Negative (Negative); OPIATES URINE SCREEN POSITIVE (Negative)
[2020-01-22 21:58] VITALS: BP 131/92; PULSE 62; RESP 14; O2SAT 98
[2020-01-22 22:03] LABS: Tricyclic Antidepressants Negative (Negative)
[2020-01-22 22:06] LABS: ALT 84 U/L (16-63); AST 48 U/L (15-37); Albumin 3.2 g/dL (3.4-5.0); Alkaline Phosphatase 63 U/L (46-116); Anion Gap 6.4 mmol/L (3-11); BUN 8 mg/dL (7-18); Bilirubin, Total 0.4 mg/dL (0.2-1.0); CO2 25.6 mmol/L (21.0-32.0); CREATININE 1.08 mg/dL (0.70-1.30); Calcium 8.3 mg/dL (8.5-10.1); Chloride 105 mmol/L (98-107); Glucose 147 mg/dL (74-106); Potassium 3.7 mmol/L (3.5-5.1); Sodium 137 mmol/L (136-145); TSH (W/Ref FT4) 0.38 uIU/mL (0.36-3.74); Total Protein 6.6 g/dL (6.4-8.2)
[2020-01-22 22:15] LABS: ETHANOL BLOOD < 3.0 mg/dL (<3)
--- NOTE | 2020-01-22 22:15 | NUR.NOTE ---
Nursing Note: Attempt to verify patients allergies and medication list. Unable to wake patient with loud verbal and tactile stimuli. Patient just mumbles.
[2020-01-22 22:20] LABS: Salicylate < 2.8 mg/dL (2.8-20.0)
[2020-01-22 22:22] LABS: Acetaminophen < 2 ug/mL (10-30)
--- NOTE | 2020-01-22 22:43 | NUR.NOTE ---
Nursing Note: Patient stood to void. Patient asking for Clonidine, states he is starting to feel like he is going into withdrawal. States he feels like his heart is racing, legs are tremulous, and is sweaty once and awhile.Patient laid back down and went right back to sleep. No extremity tremors noted, HR is 62 and skin is dry. Remains difficult to arouse.
--- NOTE | 2020-01-22 23:57 | NUR.NOTE ---
Nursing Note: Awake , stands at bedside to void. Patient requesting to call [facility] and check to see when he may be able to go. Again let patient know I believe there is a bed for him but he can not go until we get the results of his COVID swab. He asked when that would be and I let him know probably tomorrow sometime.Patient states [facility] does them faster and asked if we could transfer him to [facility]. I let patient know that is not possible because we have the services he needs available and everything is in the works. That type of transfer and reason is against the law. Patient states he is not going to make it until tomorrow. Patient was reassured and offered something to eat. Boron and gingerale given.
--- NOTE | 2020-01-23 00:06 | NUR.NOTE ---
Nursing Note: Patient now sleeping.
[2020-01-23 01:55] VITALS: BP 129/86; PULSE 85; RESP 18; O2SAT 97
--- NOTE | 2020-01-23 01:56 | NUR.NOTE ---
Nursing Note: Patient awake asking to go outside to smoke. Let patient know that was not possible but offered him a patch. Will ask MD. Patient offered something to eat, sandwich, pudding and gingerale given. Patient then asked what he was supposed to do about sleep. I reminded patient he has been sleeping quite well since he arrived at the ER. He stated I know and I want to keep sleeping. Patient then asked if he could take a shower. I reoriented patient to the time of day and that the hospital was full. I let him know I would pass it on to the day shift as he will possibly go to a room on the floor pending any discharges to wait for transfer to [facility].
--- NOTE | 2020-01-23 02:23 | NUR.NOTE ---
Nursing Note: Order faxed to [facility] for Nicotine Patch. Patient has gone back to sleep. Will apply when he wakes again.
[2020-01-23] MEDS: Nicotine 7 MG/24 HR PATCH TD (02:38)
--- NOTE | 2020-01-23 03:44 | NUR.NOTE ---
Pt awake, pacing in room. reports 11/03 dara knee pain, requesting motrin and clonidine for my withdrawals. MD Stuart aware. meds ordered. RN in to room to medicate pt, arousable to voice, would not sit up and take meds. Will hold until pt more alert to take pills.
[2020-01-23] MEDS: cloNIDine 0.1 MG PATCH TD (04:32)
[2020-01-23] MEDS: Acetaminophen 500 MG TAB 1000 MG PO ×2 (04:32→07:56)
[2020-01-23] MEDS: Ibuprofen 800 MG TAB PO ×2 (04:33→07:57)
--- NOTE | 2020-01-23 08:28 | PDOC.CMSAFED ---
- If Service Date Differs Date of service: 01/23/20 Time of Service: 10:00 Care Management Safety Plan Josiah is a 29 year old man with a history of depression, schizophrenia and illicit drug use who presented to the ED with auditory and visual hallucinations and suicidal thoughts. He reported overdosing on heroin 3 days ago and admits he hasn't taken his psychiatric medications in the past week and a half. The voices are telling him negative things and he states he would kill himself by overdosing again. He is requesting inpatient psychiatric treatment at [facility]. Apparently he had called them and was directed to come to the ED for medical clearance. CM will respond to ED to assess patient after patient has been medically cleared and assessed by screener. If screener deems patient meets criteria for psychiatric stabilization CM will facilitate interdepartmental huddle with [facility] screener for safety planning considerations and meet with patient to review [facility] policy and safety plan, establish individual wishes for treatment and maintain patient rights. In the interim; please note safety plan below to guide patient care while awaiting further assessment in the ED. SAFETY PLAN: 1. Will remain on suicide precautions and in paper clothes. 2. Will remain in room under direct supervision of one-on-one staff at all times provided by KRISHNA, SQUEAK RATTLE AND LEAK REPAIRER door frame assembler machine. At this time, Josiah will remain in the ED. 3. May have paper cups, plates, finger foods as well as a cardboard spoon with which to eat meals. 4. Follow [facility] Management of the Admitted Behavioral Health Patient policy. 5. Comfort bath system only. 6. No personal belongings at this time. 7. No visitors. 8. Phone contact limited to legal customer care representative. 9. Due to VOLUNTARY status, if patient wishes to leave [facility], the [facility] onyx chip terrazzo worker must be contacted to re-evaluate patient prior to patient exiting the building. If deemed appropriate for inpatient psychiatric care, safety plan will be established with patient, and care team, to adhere to patient goals, identify restrictions based on behavioral status, address nutrition, and determine allowed personal belongings, tools for hygiene and personal care. As well plan will determine level of activity including ambulation, level of supervision, visitors, and determine privileges based on level of acuity, behaviors and level of engagement by patient.
[2020-01-23] MEDS: LORazepam 1 MG TAB 2 MG PO (09:02)
[2020-01-23 09:10] VITALS: BP 138/85; PULSE 95; RESP 22; TEMP 37.3; O2SAT 97
--- NOTE | 2020-01-23 11:56 | NUR.NOTE ---
requested and given coke and ice cream
[2020-01-23] MEDS: LORazepam 1 MG TAB PO ×2 (14:02→20:05)
--- NOTE | 2020-01-23 16:34 | CMSP_ITS ---
- If Service Date Differs Date of service: 01/23/20 Time of Service: 16:38 Care Management Safety Plan SAFETY PLAN: 1. Will remain on suicide precautions and in paper clothes. 2. Will remain in room under direct supervision of one-on-one staff at all times provided by KRISHNA, STAFF DEVELOPMENT EDUCATOR aerial erector. At this time, Josiah will remain in the ED. 3. May have paper cups, plates, finger foods as well as a cardboard spoon with which to eat meals. 4. Follow [facility] Management of the Admitted Behavioral Health Patient policy. 5. Shower permitted with escort to shower room, per RN discretion. 6. No personal belongings at this time. 7. No visitors. 8. Phone contact: incoming and outgoing phone calls permitted per RN discretion. 9. Activities: Television and remote available, as well as soft cart items per RN discretion. 10. Due to VOLUNTARY status, if patient wishes to leave [facility], the [facility] automotive production worker must be contacted to re-evaluate patient prior to patient exiting the building. If deemed appropriate for inpatient psychiatric care, safety plan will be established with patient, and care team, to adhere to patient goals, identify restrictions based on behavioral status, address nutrition, and determine allowed personal belongings, tools for hygiene and personal care. As well plan will determine level of activity including ambulation, level of supervision, visitors, and determine privileges based on level of acuity, behaviors and level of engagement by patient.
[2020-01-23 17:31] LABS: COVID-19 RT-PCR UVMMC Result Negative (Negative)
--- NOTE | 2020-01-23 17:36 | HPE_ITS ---
Date of service: 01/23/20 Time of Service: 17:36 Assessment and Plan Assessment and plan (1) Schizophrenia: Status: Chronic Assessment and plan: Schizophrenia by report. Med list all unconfirmed and out of date. Would treat empirically with prn benzo for now as first step and will defer top p;sych for definitive management. As to substance abuse unclear if there may be an element of opiate w/d (patient states he did heroin 3 days ago). Will monitor for now, I do not see need at present to continue Clonidine given in ER. Would defer to psych and/or addiction medicine regarding resuming Suboxone History of Present Illness History of Present Illness Chief Complaint: hallucinations Narrative: 29 male with h/o substance abuse and schizophrenia. States of meds x 10 days (tells me they were stolen). Presents requesting amission. No beds available -- here or at psych facility -- so has been in ER for 20 hours. Bed now available here so is amitted voluntarily pending transfer. has received single dose of Ativan and Clonidine. Requests resume Suboxone, which he says he has not taken for ten days. In ER medical w/u of note for minimal elevation TAs and UDS + opiates and cocaine. Review of Systems All systems reviewed & are unremarkable except as noted in HPI and below PFSH Medical History ADHD (attention deficit hyperactivity disorder) evaluation (02/06/14) concentration and focus deficits Hepatitis C virus (05/16/14) referred to Infectious Disease, [place] by [facility] History of opioid abuse (08/14/14) Schizophrenia Family History Mother Substance abuse Alcohol abuse Father Substance abuse Alcohol abuse Social History Smoking/Tobacco Use Status: Current every day Tobacco Type: cigarettes Alcohol Intake: former Drug use: Daily Substance use type: marijuana Do you feel safe at home: Yes Do you feel safe in your relationship?: Yes Meds Home Medications and Allergies Home Medications Medication Instructions Recorded Confirmed Type buprenorphine-naloxone [Suboxone] 1 film SUBLINGUAL DAILY 02/09/17 10/21/19 History ibuprofen 600 mg PO TID PRN #15 tab 04/10/17 10/21/19 Rx lithium carbonate 300 mg PO BID 08/06/17 10/21/19 History quetiapine [Seroquel] 100 mg PO HS 08/06/17 10/21/19 History dexmethylphenidate [Focalin XR] 15 mg PO 10/21/19 History Allergies Allergy/AdvReac Type Severity Reaction Status Date / Time amoxicillin Allergy Unknown Oral Unverified 10/21/19 05:31 edema/bruising meloxicam [From Mobic] Allergy Unknown rash Unverified 10/21/19 05:31 Penicillins Allergy Unknown oral edema Unverified 10/21/19 05:31 bee venom protein (honey bee) Allergy Swelling/Ed Unverified 10/21/19 05:31 gorge fluoride Allergy Unknown Uncoded 10/21/19 05:31 seafood AdvReac Unknown unknown Uncoded 10/21/19 05:31 Exam Narrative Exam Narrative: 135/85, 95, 37.3, 22, 97% RA. HEENT atraumatic; neck supple; lungs clear; heart RRR; abdomen soft and NT; extremities w/o edema; neuro somewhat restless, twitching his feet, Ox3, non focal Results Labs Result diagrams: 01/22/20 21:15 01/22/20 21:15 Labs: Laboratory Results - last 24 hr 01/22/20 01/22/20 01/22/20 21:15 21:15 21:15 WBC 8.22 RBC 4.21 L Hgb 13.1 L Hct 38.4 L MCV 91.2 MCH 31.1 MCHC 34.1 RDW 12.3 Plt Count 274 MPV 10.3 Immature Gran % 0.4 Neutrophils % 73.3 Lymphocytes % 17.0 Monocytes % 7.3 Eosinophils % 1.5 Basophils % 0.5 Nucleated RBC % 0 Absolute Neutrophils 6.03 Absolute Lymphocytes 1.40 Absolute Monocytes 0.60 Absolute Eosinophils 0.12 Absolute Basophils 0.04 Sodium 137 Potassium 3.7 Chloride 105 Carbon Dioxide 25.6 Anion Gap 6.4 BUN 8 Creatinine 1.08 Estimated GFR/1.73 m2 >= 60.00 Glucose 147 H Calcium 8.3 L Total Bilirubin 0.4 AST 48 H ALT 84 H Alkaline Phosphatase 63 Total Protein 6.6 Albumin 3.2 L TSH 0.38 Salicylates < 2.8 Urine Opiates Screen Urine Methadone Screen Acetaminophen < 2 Ur Barbiturates Screen Ur Tricyclics Screen Ur Amphetamines Screen U Benzodiazepines Scrn Urine Cocaine Screen Ur THC Screen Ethyl Alcohol < 3.0 01/22/20 21:15 WBC RBC Hgb Hct MCV MCH MCHC RDW Plt Count MPV Immature Gran % Neutrophils % Lymphocytes % Monocytes % Eosinophils % Basophils % Nucleated RBC % Absolute Neutrophils Absolute Lymphocytes Absolute Monocytes Absolute Eosinophils Absolute Basophils Sodium Potassium Chloride Carbon Dioxide Anion Gap BUN Creatinine Estimated GFR/1.73 m2 Glucose Calcium Total Bilirubin AST ALT Alkaline Phosphatase Total Protein Albumin TSH Salicylates Urine Opiates Screen Positive A Urine Methadone Screen Negative Acetaminophen Ur Barbiturates Screen Negative Ur Tricyclics Screen Negative Ur Amphetamines Screen Negative U Benzodiazepines Scrn Negative Urine Cocaine Screen Positive A Ur THC Screen Negative Ethyl Alcohol Last Vital Signs Temp 37.3 C 01/23/20 09:10 Pulse 95 H 01/23/20 09:10 Resp 22 01/23/20 09:10 BP 138/85 01/23/20 09:10 Pulse Ox 97 01/23/20 09:10 COVID-19 Screening Have you,or household,traveled outside [place] in last 14 days?: No Had IN PERSON contact w/suspected or confirmed C-19 person: No
[2020-01-23 19:15] VITALS: BP 149/98; PULSE 73; RESP 22; TEMP 37.1; O2SAT 99
[2020-01-23 19:20] VITALS: BP 149/98; PULSE 73; RESP 22; TEMP 37.1; O2SAT 99
[2020-01-23] MEDS: cloNIDine 0.1 MG TAB PO (20:05)
[2020-01-23] MEDS: Acetaminophen 325 MG TAB 650 MG PO (20:05)
[2020-01-23] MEDS: cloNIDine 0.1 MG TAB (20:11)
[2020-01-24] MEDS: LORazepam 1 MG TAB PO ×3 (00:12→09:38)
[2020-01-24] MEDS: Acetaminophen 325 MG TAB 650 MG PO ×3 (01:00→09:37)
[2020-01-24 06:47] VITALS: BP 123/70; PULSE 79; RESP 18; TEMP 37; O2SAT 97
[2020-01-24 07:30] VITALS: BP 115/71; PULSE 95; RESP 16; TEMP 36.7; O2SAT 98
--- NOTE | 2020-01-24 08:22 | PDOC.CMSAFE ---
- If Service Date Differs Date of service: 01/24/20 Time of Service: 09:00 Care Management Safety Plan Status: Voluntary SAFETY PLAN: 1. Will remain on suicide precautions and in paper clothes. 2. Will remain in room under direct supervision of one-on-one staff at all times provided by KRISHNA, HEAD OF COMMISSION DEPARTMENT stamping die try out worker. At this time, Josiah will remain in the ED. 3. May have paper cups, plates, finger foods as well as a cardboard spoon with which to eat meals. 4. Follow [facility] Management of the Admitted Behavioral Health Patient policy. 5. Shower permitted with escort to shower room, per RN discretion. 6. Patient's own cell phone. 7. No visitors. 8. Phone contact: incoming and outgoing phone calls permitted per RN discretion. 9. Activities: Television and remote available, as well as soft cart items per RN discretion. 10. Due to VOLUNTARY status, if patient wishes to leave [facility], the [facility] computer networker must be contacted to re-evaluate patient prior to patient exiting the building. If deemed appropriate for inpatient psychiatric care, safety plan will be established with patient, and care team, to adhere to patient goals, identify restrictions based on behavioral status, address nutrition, and determine allowed personal belongings, tools for hygiene and personal care. As well plan will determine level of activity including ambulation, level of supervision, visitors, and determine privileges based on level of acuity, behaviors and level of engagement by patient.
--- NOTE | 2020-01-24 08:33 | PDOC.CMPRO ---
Care Management Progress Note [id number] DAVINA faxed negative covid test to [place] with H&P. [id number] Robles, KINJAL reports Josiah has been appropriate and is advocating for having his cellphone; CM in agreement. Robles will confirm with RNCC. [id number] DAVINA spoke with Laine at ; reports Josiah is slated for admission today pending covid result and pending bed availability.
--- NOTE | 2020-01-24 10:38 | DSE_ITS ---
Date of service: 01/24/20 Time of Service: 10:38 DS: Diagnosis Discharge Diagnosis (1) Schizophrenia: Status: Chronic Discharge Plan Disposition Patient Disposition: AGAINST MEDICAL ADVICE Condition: Stable Discharge Details Reason For Visit: SCHIZOPHRENIA,SUBSTANCE ABUSE Admit Date/Time: 01/23/20 17:47 Admit Provider: Mal Álvarez Attending Provider: Mal Álvarez Primary Care Provider: Erika Espitia [facility] Course Hospital Course: Left AMA Home Meds and New Rx's Prescriptions: No Action lithium carbonate 300 MG tablet 300 mg PO HS RF: 0 buprenorphine-naloxone 8-2 mg Tablet, Sublingual 2 tab SUBLINGUAL DAILY RF: 0 dexmethylphenidate [Focalin XR] 20 mg Capsule,Er Biphasic 50-50 20 mg PO DAILY RF: 0 Eliquis 5 mg Tablet 5 mg PO BID RF: 0 famotidine 40 mg Tablet 40 mg PO DAILY RF: 0 Discharge Instructions Activity:: Activity as Tolerated Diet:: As Tolerated Discharge Data Discharge Date/Time-TO BE ENTERED AT DEPARTURE: 01/24/20 09:58 DS: Summary Status at Discharge Functional status at discharge: independent ambulation Overall status at discharge: patient is back to baseline Mental Status: mental status grossly normal Speech and Movement: speech and movement normal Mood: congruent mood Affect: normal affect Exam Psych Mental Status: mental status grossly normal Speech and Movement: speech and movement normal Mood: congruent mood Affect: normal affect DS: Data Vitals/I&O Vitals and I&O: Vital Signs Temperature 36.7 C 01/24/20 07:30 Temperature Source Tympanic 01/24/20 07:30 Pulse 95 H 01/24/20 07:30 Pulse Rhythm Regular 01/24/20 05:02 Respiratory Rate 16 01/24/20 07:30 Respiratory Effort Non-Labored 01/24/20 05:02 Respiratory Depth Normal 01/24/20 05:02 Respiratory Pattern Normal 01/24/20 05:02 Blood Pressure 115/71 01/24/20 07:30 Blood Pressure Position Sitting 01/22/20 20:38 Pulse Oximetry 98 01/24/20 07:30 Oxygen Delivery Method Room Air 01/24/20 07:30 Oxygen Flow Rate 0 01/24/20 07:30 Pain Level 5 01/24/20 09:37 Intake & Output 01/23/20 01/23/20 01/24/20 11:59 23:59 11:59 Intake Total 240 / 1490 1250 / 1490 750 / 750 Output Total 900 / 900 Balance -660 / 590 1250 / 590 750 / 750 Weight 99.79 kg Intake: Oral 240 / 1490 1250 / 1490 750 / 750 Output: Urine 900 / 900 Other: Urine Appearance Clear Clear Voiding Methods Toilet Toilet Data Completed and Pending Labs on day of discharge: Labs from last 24 hours 01/22/20 21:50 COVID-19 PCR Negative Nasopharyn COVID-19 PCR Not Applicable Ref Test Perform Site [facility] lab [facility] Medical History (Updated 01/23/20 @ 18:02 by Todd Sanchez MD) ADHD (attention deficit hyperactivity disorder) evaluation (02/06/14) concentration and focus deficits Hepatitis C virus (05/16/14) referred to Infectious Disease, [place] [facility] History of opioid abuse (08/14/14) Schizophrenia Family History Mother Substance abuse Alcohol abuse Father Substance abuse Alcohol abuse Social History Smoking/Tobacco Use Status: Current every day Tobacco Type: cigarettes Alcohol Intake: former Drug use: Daily Substance use type: marijuana Do you feel safe at home: Yes Do you feel safe in your relationship?: Yes
[2020-01-24 12:52] LABS: Lithium < 0.20 mmol/L (0.60-1.20)
== END 2020-01-24 09:58 | disposition left against medical advice (07) ==
LOC: ER 01-23 18:19 → MS 01-23 18:56
PROVIDERS: Student in an Organized Health Care Education/Training Program; Admitting Provider General Practice; Emergency Provider Emergency Medicine; PCP Nurse Practitioner Family; Visit Provider General Practice
DX: F20.9 Schizophrenia, unspecified (principal); B19.20 Unspecified viral hepatitis C without hepatic coma; Z11.59 Encounter for screening for other viral diseases; F90.9 Attention-deficit hyperactivity disorder, unspecified type; F17.210 Nicotine dependence, cigarettes, uncomplicated; F11.10 Opioid abuse, uncomplicated; F14.90 Cocaine use, unspecified, uncomplicated
CPT/HCPCS: 36415; 80053; 80307; 99221; 99285; NC; U0003; 80178; 80320; 80329; 84443; 85025; 99218; 99284; G0378